=== PATIENT | female | born 1980 | race Caucasian/White ===

== ENCOUNTER 2017-03-14 00:01 | Emergency (ER) | payer OTHER ==
--- NOTE | ~2017-03-14 | CR127 ---
[facility] A Service of [facility] & [facility] RADIOLOGY TEXT RESULTS PATIENT: SIMI AUSTIN LOCATION: [facility] : 84 UNIT #: [id number] AGE: [address]: OG PERSAUD APRN SEX: F ORDER DR: [id number] [facility] [address] [place], [place] [address] [id number] MR#: [id number] Acc #: [id number] NAME: SIMI AUSTIN : 1980 SEX: F STUDY DATE/TIME: 03/14/2017 UNIT: [facility] ROOM: STUDY DESCRIPTION: CR Foot Complete Min 3 View Rt Attending Physician: Og Persaud Aprn Ordering Physician: Noe Leal M.D. Primary Care Physician: Andrey Turner MEDICAL IMAGING REPORT This report is preliminary unless electronic signature is present EXAM Right foot, 03/14 00:47 hours INDICATION Lateral foot pain and soft tissue swelling after a fall today. FINDINGS 3 views of the right foot were obtained. There is a nondisplaced fracture at the base of the fifth metatarsal. No other fractures are seen. The rest of the foot is normal. IMPRESSION Nondisplaced fracture of the base of the fifth metatarsal. Dictated by... Anish Griffin Jr., M.D. THIS IS AN ELECTRONICALLY VERIFIED REPORT Anish Griffin Jr., M.D. at 03/14/2017 5:18 PM KENDAL/j luis TD: 03/14/2017 10:24 JOB #: [id number] MEDICAL IMAGING REPORT Page 1 of 1 COPY
[~2017-03-14 00:01] MED LIST: BLEPH-105 M1 OD; LORTAB 10-5001 EACH PO; LORTAB 5/500 TA1 TA1 PO; ULTRAM PO
== END 2017-03-14 02:25 | disposition home or self-care (01) ==
LOC: CED 00:01
DX: S92.354A Nondisplaced fracture of fifth metatarsal bone, right foot, initial encounter for closed fracture (principal); M54.9 Dorsalgia, unspecified; G89.29 Other chronic pain; Z88.0 Allergy status to penicillin; F17.210 Nicotine dependence, cigarettes, uncomplicated; X58.XXXA Exposure to other specified factors, initial encounter; Y92.009 Unspecified place in unspecified non-institutional (private) residence as the place of occurrence of the external cause
CPT/HCPCS: 29515; 73630; 99283